=== PATIENT | female | born 1975 | race Caucasian/White ===

== ENCOUNTER 2019-06-07 18:28 | Emergency (ER) | payer OTHER ==
[~2019-06-07] VITALS: Ht 154.9 cm; Wt 56.7 kg
--- NOTE | 2019-06-07 18:58 | NUR ---
PT BIB PD FOR MEDICAL CLEARANCE, 18 WEEKS . PALCED ON MONITOR AND PULSE OX. AWAITING MD FOR [facility].
--- NOTE | 2019-06-07 19:17 | NUR ---
Dottie medel in ED - 06/07/19 at 1919 by ROXANA Patient discharged to home in stable condition. Written and verbal after care instructions given. Patient verbalizes understanding of instruction. PT Medically cleared.
[2019-06-07 19:22] VITALS: BP 124/84
--- NOTE | 2019-06-07 19:22 | NUR ---
Patient discharged to home in stable condition. Written and verbal after care instructions given. Patient verbalizes understanding of instruction. PT Medically cleared. VSS
== END 2019-06-07 19:25 ==
LOC: ER 18:35
DX: O26.92 Pregnancy related conditions, unspecified, second trimester (principal); Z3A.18 18 weeks gestation of pregnancy; Z88.6 Allergy status to analgesic agent